=== PATIENT | female | born 1980 | race Caucasian/White ===

== ENCOUNTER 2023-10-21 19:20 | Emergency (ER) | payer SELFPAY ==
[2023-10-21 19:30] VITALS: BP 120/81; PULSE 84; RESP 18; TEMP 98.6; BMI 24.1
[2023-10-21] MEDS ORDERED: ACETAMINOPHEN INJECTION 100 ML IVPB ONE (21:25)
[2023-10-21 21:39] LABS: BASO % 0.6 % (0-2.0); EOS % 1.3 % (0-4.5); HEMATOCRIT 40.3 % (32.4-45.2); HEMOGLOBIN 13.5 GM/dL (10.7-15.3); MCH 28.4 pg (25.7-33.7); MCHC 33.5 g/dl (32.0-36.0); MEAN CELL VOLUME 84.9 fl (80-96); MEAN PLT VOLUME 8.4 fl (7.5-11.1); MONO % 6.1 % (3.8-10.2); PLATELET COUNT 266 10^3/uL (134-434); RBC 4.75 M/mm3 (3.60-5.2); RDW 13.6 % (11.6-15.6); WHITE BLOOD COUNT 8.1 K/mm3 (4.0-10.0)
[2023-10-21] MEDS: ACETAMINOPHEN 1000 MG/100 ML BAG IVPB ONE (21:42)
[2023-10-21 21:44] LABS: INR 1.03 (0.83-1.09); PROTHROMBIN TIME (PATIENT) 11.9 SEC (9.7-13.0)
[2023-10-21 21:47] LABS: ACTIVATED PTT 33.9 SECONDS (25.2-36.5); CALCIUM 9.3 mg/dL (8.5-10.1); POTASSIUM 3.6 mmol/L (3.5-5.1)
[2023-10-21 21:48] LABS: ALBUMIN 3.9 g/dl (3.4-5.0); BLOOD UREA NITROGEN 11.6 mg/dL (7-18); MAGNESIUM 2.3 mg/dL (1.8-2.4)
[2023-10-21 21:51] LABS: CREATININE 0.8 mg/dL (0.55-1.3)
[2023-10-21 21:52] LABS: BILIRUBIN,TOTAL 0.9 mg/dL (0.2-1)
[2023-10-21 21:53] LABS: TOT PROT 7.5 g/dl (6.4-8.2)
[2023-10-21 21:56] LABS: N-TERMINAL BNP 42.4 pg/ml (5-125)
== END 2023-10-21 23:42 | disposition home or self-care (01) ==
LOC: JER 19:20
PROC: 3E033NZ Introduction of Analgesics, Hypnotics, Sedatives into Peripheral Vein, Percutaneous Approach (ICD-10-PCS; principal; 2023-10-21)
DX: R00.2 Palpitations (principal); R07.9 Chest pain, unspecified; Z20.822 Contact with and (suspected) exposure to COVID-19
CPT/HCPCS: 0241U-QW; 36415; 71046-TC-FY; 80053; 83735; 83880; 84484; 84703; 85025; 85610; 85730; 93005; 93010; 99285-25; J0131